=== PATIENT | female | born 1975 | race Caucasian/White ===

== ENCOUNTER → 2021-10-22 13:41 | Outpatient (CLI) | payer SELFPAY ==
--- NOTE | ~2021-10-22 | US_ITS ---
EXAMINATION: US pelvic complete w TV DATE: 10/22/2021 14:10 INDICATION: Metrorrhagia TECHNIQUE: Multiple transabdominal and endovaginal sonographic images of the pelvis were obtained. COMPARISON: None. FINDINGS: Uterus: 6.5 x 3.6 x 3.9 cm. Endometrial complex measures 0.4 cm. Scattered dystrophic calcifications within the endometrial complex and cervix. Right Ovary: Not visualized. Left Ovary: Not visualized. There is no free fluid in the pelvis. IMPRESSION: 1. No sonographic evidence of endometrial polyp or fibroid. 2. Ovaries not visualized. Reviewed, dictated and finalized at location K.
== END ==
PROVIDERS: Visit Provider Physician Assistant
DX: N92.1 Excessive and frequent menstruation with irregular cycle (principal)
CPT/HCPCS: 76830; 76856

== ENCOUNTER → 2022-02-24 13:24 | Outpatient (REF) | payer SELFPAY | LOC: ANHLAB 13:24 | PROVIDERS: Visit Provider Surgery Plastic and Reconstructive Surgery | DX: R22.9 Localized swelling, mass and lump, unspecified (principal) | CPT/HCPCS: 88304 ==